=== PATIENT | male | born 1950 | race African-American/Black ===

== ENCOUNTER 2016-08-19 22:13 | Inpatient (IN) | payer BC ==
[2016-08-19 22:43] LABS: URINE APPEARANCE CLEAR; URINE BILIRUBIN NEGATIVE (NEGATIVE); URINE COLOR YELLOW; URINE GLUCOSE (UA) NEGATIVE (NEGATIVE); URINE KETONE TRACE (NEGATIVE); URINE NITRITE NEGATIVE (NEGATIVE); URINE PROTEIN NEGATIVE (NEGATIVE); URINE UROBILINOGEN 2.0 E.U/dl E.U./dl (0.2-1.0)
--- NOTE | 2016-08-19 22:48 | PDOC ---
History of Present Illness - History of Present Illness Initial Comments: 08/19/16 23:34 Patient is a 65 year old male with significant medical hx of HTN who is presenting to the ED with fever 24 hours after undergoing a prostate biopsy. Yesterday the patient had a prostate biopsy and today developed fever and chills. Family member states the patients fever has gone as high as 103.2. Four days ago the patient was started on bactrim and flagyl preoperatively. The patient has also been taking 25 mg of Benadryl for suspected sulfa allergy and 400 mg of motrin x 2. The patient denies any back pain, abdominal pain, nausea, vomiting, diarrhea or dysuria. PMD: Emilia Porras Urologist: Edwin Leblanc MD Social Hx: Denies alcohol, tobacco, or drug use. <Geena Catalan - Last Filed: 08/20/16 00:12> <Isatu Moya - Last Filed: 08/20/16 02:56> - General Chief Complaint: SIRS, Suspected/Possible Stated Complaint: ALLERGIC REACTION Time Seen by Provider: 08/19/16 22:22 Past History <Geena Catalan - Last Filed: 08/20/16 00:12> - Past Medical History HTN: Yes - Psycho/Social/Smoking Cessation Hx Suicidal Ideation: No Smoking History: Never smoked <Isatu Moya - Last Filed: 08/20/16 02:56> - Past Medical History Allergies/Adverse Reactions: Allergies Allergy/AdvReac Type Severity Reaction Status Date / Time Sulfa (Sulfonamide Allergy Verified 08/20/16 00:34 Antibiotics) Home Medications: Ambulatory Orders Amlodipine Besylate 5 mg PO DAILY 08/19/16 Metronidazole 250 mg PO DAILY 08/19/16 Sulfamethoxazole/Trimethoprim [Sulfamethoxazole-Tmp Ss Tablet] 1 each PO BID 12/28 Review of Systems - Review of Systems Comments:: 08/19/16 23:35 CONSTITUTIONAL: Present: fever, chills Absent: diaphoresis, generalized weakness, malaise, loss of appetite HEENT: Absent: rhinorrhea, nasal congestion, throat pain, throat swelling, difficulty swallowing, mouth swelling, ear pain, eye pain, visual changes CARDIOVASCULAR: Absent: chest pain, syncope, palpitations, irregular heart rate, lightheadedness , peripheral edema RESPIRATORY: Absent: cough, shortness of breath, dyspnea with exertion, orthopnea, wheezing, stridor, hemoptysis GASTROINTESTINAL: Absent: abdominal pain, abdominal distension, nausea, vomiting, diarrhea, constipation, melena, hematochezia GENITOURINARY: Absent: dysuria, frequency, urgency, hesitancy, hematuria, flank pain, genital pain MUSCULOSKELETAL: Absent: myalgia, arthralgia, joint swelling SKIN: Absent: rash, itching, pallor HEMATOLOGIC/IMMUNOLOGIC: Absent: easy bleeding, easy bruising, lymphadenopathy, frequent infections ENDOCRINE: Absent: unexplained weight gain, unexplained weight loss, heat intolerance, cold intolerance NEUROLOGIC: Absent: headache, focal weakness or paresthesia, dizziness, unsteady gait, seizure, mental status changes, bladder or bowel incontinence. PSYCHIATRIC: Absent: anxiety, depression, suicidal or homicidal ideation, hallucinations <Geena Catalan - Last Filed: 08/20/16 00:12> *Physical Exam - Vital Signs Last Vital Signs Temp Pulse Resp BP Pulse Ox 100.9 F H 127 H 20 128/71 96 08/19/16 22:18 08/19/16 22:18 08/19/16 22:18 08/19/16 22:18 08/19/16 22:18 - Physical Exam Comments: 08/19/16 23:35 GENERAL: Warm to touch. Febrile. Well developed, well nourished. Awake and alert. No acute distress. HEENT: Normocephalic, atraumatic. PERRLA, EOMI. No conjunctival pallor. Sclera are non- icteric. Dry mucous membranes. Oropharynx is clear. NECK: Supple. Full ROM. No JVD. Carotid pulses 2+ and symmetric, without bruits. No thyromegaly. No lymphadenopathy. CARDIOVASCULAR: Tachycardic. No murmurs, rubs, or gallops. Distal pulses are 2+ and symmetric. PULMONARY: No evidence of respiratory distress. Lungs clear to auscultation bilaterally. No wheezing, rales or rhonchi. ABDOMINAL: Soft. Non-tender. Non-distended. No rebound or guarding. No organomegaly. Normoactive bowel sounds. MUSCULOSKELETAL: Normal range of motion at all joints. No bony deformities or tenderness. No CVA tenderness. EXTREMITIES: No cyanosis. No clubbing. No edema. No calf tenderness. SKIN: Warm and dry. Normal capillary refill. No rashes. No jaundice. NEUROLOGICAL: Alert, awake, appropriate. No focal neurological deficits. Cranial nerves 2-12 intact. Normal speech. Gait is normal without ataxia. PSYCHIATRIC: Cooperative. Good eye contact. Appropriate mood and affect. <Geena Catalan - Last Filed: 08/20/16 00:12> - Vital Signs Last Vital Signs Temp Pulse Resp BP Pulse Ox 100.9 F H 127 H 20 128/71 96 08/19/16 22:18 08/19/16 22:18 08/19/16 22:18 08/19/16 22:18 08/19/16 22:18 <Isatu Moya - Last Filed: 08/20/16 02:56> ED Treatment Course - LABORATORY CBC & Chemistry Diagram: 08/19/16 23:00 08/19/16 23:00 - ADDITIONAL ORDERS Additional order review: Laboratory Results 08/19/16 08/19/16 23:00 22:35 Lactic Acid 0.893 Urine Color Yellow Urine Appearance Clear Urine pH 5.0 Urine Protein Negative Urine Glucose (UA) Negative Urine Ketones Trace H Urine Blood 2+ H Urine Nitrite Negative Urine Bilirubin Negative Urine Urobilinogen 2.0 e.u/dl Ur Leukocyte Esterase Trace H Urine RBC 100 Urine WBC 10 Ur Epithelial Cells Rare Hyaline Casts 1 Urine Mucus Rare - RADIOLOGY Radiograph Interpretation: 08/19/16 23:50 Chest X-Ray Impression: No significant interval change or acute lung disease is present. Reported By: Carla Flowers MD <Geena Catalan - Last Filed: 08/20/16 00:12> - LABORATORY CBC & Chemistry Diagram: 08/19/16 23:00 08/19/16 23:00 <Isatu Moya - Last Filed: 08/20/16 02:56> Medical Decision Making - Medical Decision Making 08/20/16 02:50 65-year-old man who had a prostate biopsy on Thursday. He has been on Bactrim and Flagyl since Thursday, but still developed 103.2, fever this evening. He took Motrin and then arrival his temperature was 100.[address] Mariza Garcia. he was covering for Dr. leblanc and because this patient has failed by mouth antibiotics. He wants the patient admitted and requested that Dr. Kelly the infectious disease consult <Isatu Moya - Last Filed: 08/20/16 02:56> *DC/Admit/Observation/Transfer - Attestations Scribe Attestion: 08/19/16 23:36 Documentation prepared by Geena Catalan, acting as medical staff coordinator for Isatu Moya MD. <Geena Catalan - Last Filed: 08/20/16 00:12> - Discharge Dispostion Admit: Yes <Isatu Moya - Last Filed: 08/20/16 02:56> Diagnosis at time of Disposition: H/O prostate biopsy Fever Qualifiers: Fever type: due to other condition Qualified Code(s): R50.81 - Fever presenting with conditions classified elsewhere Sepsis Qualifiers: Sepsis type: sepsis due to unspecified organism Qualified Code(s): A41.9 - Sepsis, unspecified organism
[2016-08-19 22:55] LABS: URINE BLOOD 2+ (NEGATIVE); URINE LEUK ESTERASE TRACE (NEGATIVE)
[2016-08-19 23:14] LABS: URINE HYALINE CAST 1 /lpf; URINE MUCUS RARE; URINE RBC 100 /hpf (0-3); URINE WBC 10 /hpf (3-5)
[2016-08-19 23:41] LABS: BASOPHIL 0.3 % (0-2.0); MCH 26.6 pg (25.7-33.7); MCHC 32.6 g/dl (32.0-35.9); MEAN CELL VOLUME 81.5 fl (80-96); NEUTROPHILS 86.1 % (42.8-82.8); PLATELET COUNT 196 K/MM3 (134-434); RDW 13.9 % (11.9-15.9); WHITE BLOOD COUNT 9.2 K/mm3 (4.0-10.0)
[2016-08-19 23:57] LABS: VENOUS BLOOD GAS HCO3 21.7 meq/L (19-25); VENOUS PH 7.5 (7.32-7.42)
[2016-08-20] LABS: INR 1.58 (0.82-1.09); PROTHROMBIN TIME (PATIENT) 17.5 SEC (9.98-11.88)
[2016-08-20 00:03] LABS: ACTIVATED PTT 32.6 SECONDS (26.9-34.4)
[2016-08-20 00:05] LABS: ALBUMIN 3.8 g/dl (3.4-5.0); BILIRUBIN,TOTAL 0.8 mg/dL (0.2-1.0); CALCIUM 8.5 mg/dL (8.5-10.1); COCKROFT - GAULT 61.67; CREATININE 1.4 mg/dL (0.7-1.3); TOT PROT 6.3 g/dl (6.4-8.2)
[2016-08-20] MEDS ORDERED: PIPERACILLIN/TAZOB 4.5 GM 100 ML IVPB ONE (00:44)
[2016-08-20] MEDS ORDERED: VANCOMYCIN 1 GRAM (PRE-DOCKED) 250 ML IVPB ONE (00:44)
[2016-08-20] MEDS ORDERED: VANCOMYCIN 1,000 MG in DEXTROSE 5%-WATER - 250 ML IVPB ONE (00:57)
[2016-08-20] MEDS ORDERED: PIPERACILLIN/TAZOB 3.375 GM 3.375 GM in DEXTROSE 5%-WATER - 50 ML IVPB ONE (00:57)
[2016-08-20] MEDS ORDERED: ACETAMINOPHEN 325 MG TABLET (FP) PO PRN (02:08)
[2016-08-20 03:29] VITALS: BMI 25.8
--- NOTE | 2016-08-20 08:56 | HP ---
DATE OF ADMISSION: 08/20/2016 HISTORY OF PRESENT ILLNESS: This is a 65-year-old male known to me for many years who is on amlodipine for hypertension other than . Last Thursday, he had a surgery for his enlarged prostate. Postoperatively, he was treated with p.o. antibiotics, started spiking fever over the weekend. Yesterday, fever was 101 to 103, so, he came to the emergency room. In the ER, his fever was 101, urine with few RBCs, chest x-ray negative. So, he got admitted with diagnosis of fever, possible UTI. This morning, he is feeling better. SOCIAL HISTORY: He is employed. He is . He is not a smoker. ALLERGIES: No known allergies. PHYSICAL EXAMINATION: Vital signs: BP is 100/75, maximum temperature 100.9, this morning temperature is 97. HEENT: Unremarkable. Neck: Supple. No JVD. Lungs: Clear. Heart: S1, S2 normal. No S3, S4. Abdomen: Soft. Extremities: Legs with no edema. Neurologic: Grossly normal. LABORATORY REPORTS: WBC 9, neutrophils 86, hemoglobin 12. Chemistry: Sodium 138, potassium 4.1, BUN 15, creatinine 1.4, glucose 145, lactic acid 0.8. Urine with ketones plus WBC 10, RBC 100. Chest x-ray is negative. IMPRESSION: Fever, status post prostatectomy, transurethral resection of the prostate, hypertension. PLAN: IV consult, Deana to follow the patient. I will follow this patient. Dung [id number]
--- NOTE | 2016-08-20 11:23 | CONSULT ---
Consult Consult Specialty:: infectious diseases Referred by:: Reason for Consultation:: fever - History of Present Illness Chief Complaint: fever weakness History of Present Illness: 65 year old male with significant medical hx of HTN admitted with fever 24 hours after undergoing a prostate biopsy. according to the patient he does not have any other medical problems patient had prostate biopsy and then started spiking fevers patient fevers were as high as 103.2 currently patient feels better no complaining of any other issues patient was given bactrim and flagyl preop - History Source History Provided By: Patient Limitations to Obtaining History: No Limitations - Alcohol/Substance Use Hx Alcohol Use: No - Smoking History Smoking history: Never smoked Home Medications - Allergies Allergies/Adverse Reactions: Allergies Allergy/AdvReac Type Severity Reaction Status Date / Time Sulfa (Sulfonamide Allergy Verified 08/20/16 00:34 Antibiotics) - Home Medications Home Medications: Ambulatory Orders Amlodipine Besylate 5 mg PO DAILY 08/19/16 Metronidazole 250 mg PO DAILY 08/19/16 Sulfamethoxazole/Trimethoprim [Sulfamethoxazole-Tmp Ss Tablet] 1 each PO BID 12/28 Review of Systems - Review of Systems Constitutional: reports: Fever Eyes: reports: No Symptoms HENT: reports: No Symptoms Neck: reports: No Symptoms Cardiovascular: reports: No Symptoms Respiratory: reports: No Symptoms Gastrointestinal: reports: No Symptoms Genitourinary: reports: No Symptoms Breasts: reports: No Symptoms Reported Musculoskeletal: reports: No Symptoms Integumentary: reports: No Symptoms Neurological: reports: No Symptoms Endocrine: reports: No Symptoms Hematology/Lymphatic: reports: No Symptoms Psychiatric: reports: No Symptoms Physical Exam Vital Signs: Vital Signs Temperature 98.2 F 08/20/16 08:28 Pulse Rate 77 08/20/16 08:28 Respiratory Rate 18 08/20/16 08:28 Blood Pressure 122/75 08/20/16 08:28 O2 Sat by Pulse Oximetry (%) 96 08/20/16 01:14 Constitutional: Yes: No Distress, Calm Eyes: Yes: Conjunctiva Clear HENT: Yes: Atraumatic Neck: Yes: Supple, Trachea Midline Cardiovascular: Yes: Regular Rate and Rhythm Respiratory: Yes: Regular, CTA Bilaterally Gastrointestinal: Yes: Normal Bowel Sounds, Soft Musculoskeletal: Yes: WNL Extremities: Yes: WNL Neurological: Yes: Alert, Oriented Psychiatric: Yes: Alert, Oriented Imaging - Results Chest X-ray: Report Reviewed, Image Reviewed Assessment/Plan this patient with recent prostate biopsy now coming in with fevers prostatitis r/o uti fever weakness plan will start on abx await for all cx reports will do u/s of the prostate to see for collections monitor for fevers
--- NOTE | 2016-08-20 13:23 | EKG ---
Test Reason : Blood Pressure : / mmHG Vent. Rate : 074 BPM Atrial Rate : 074 BPM P-R Int : 150 ms QRS Dur : 078 ms QT Int : 380 ms P-R-T Axes : 018 026 012 degrees QTc Int : 421 ms NORMAL SINUS RHYTHM NORMAL ECG WHEN COMPARED WITH ECG OF 11-OCT-2008 09:40, NO SIGNIFICANT CHANGE WAS FOUND Confirmed by TAMI HERNADEZ MD ([id number]) on 08/20/2016 1:23:18 PM Referred By: Confirmed By:TAMI HERNADEZ MD
[2016-08-20] MEDS: MEROPENEM 1 GM in DEXTROSE 5%-WATER - 250 ML IVPB SCH ×2 (13:47→18:13)
[2016-08-20] MEDS ORDERED: PT OWN MED DRAWER 7, Y5N ONE (18:12)
[2016-08-21] MEDS: MEROPENEM 1 GM in DEXTROSE 5%-WATER - 250 ML IVPB SCH ×3 (02:04→17:27)
--- NOTE | 2016-08-21 08:22 | PN ---
Progress Note, Physician Chief Complaint: Feels better History of Present Illness: mag Baker ID consult appreciated - Current Medication List Current Medications: Active Medications Acetaminophen (Tylenol -) 650 mg PO Q6H PRN PRN Reason: FEVER OR PAIN Last Admin: 08/20/16 17:05 Dose: 650 mg Meropenem 1 gm/ Dextrose 250 mls @ 250 mls/hr IVPB Q8H-IV BRAXTON PRN Reason: Protocol Last Admin: 08/21/16 02:04 Dose: 250 mls/hr - Objective Vital Signs: Vital Signs Temperature 99.6 F 08/21/16 06:31 Pulse Rate 75 08/21/16 06:31 Respiratory Rate 20 08/21/16 06:31 Blood Pressure 114/78 08/21/16 06:31 O2 Sat by Pulse Oximetry (%) 97 08/20/16 21:00 Constitutional: Yes: Well Nourished Eyes: Yes: WNL HENT: Yes: WNL Neck: Yes: WNL Cardiovascular: Yes: WNL Respiratory: Yes: WNL Gastrointestinal: Yes: WNL ...Rectal Exam: Yes: WNL Genitourinary: Yes: WNL Musculoskeletal: Yes: WNL Edema: No Edema: LUE: Trace, RUE: Trace, LLE: Trace, RLE: Trace Labs: INR, PTT INR 1.58 (0.82-1.09) H 08/19/16 23:22 - ....Imaging Ultrasound: Report Reviewed Assessment/Plan Continue imepenem
[2016-08-21] MEDS ORDERED: PT OWN MED DRAWER 7, Y5N ONE (09:31)
--- NOTE | 2016-08-21 16:47 | PN ---
Progress Note, Physician History of Present Illness: patient has remained stable no new issues fells well - Current Medication List Current Medications: Active Medications Acetaminophen (Tylenol -) 650 mg PO Q6H PRN PRN Reason: FEVER OR PAIN Last Admin: 08/20/16 17:05 Dose: 650 mg Meropenem 1 gm/ Dextrose 250 mls @ 250 mls/hr IVPB Q8H-IV BRAXTON PRN Reason: Protocol Last Admin: 08/21/16 09:33 Dose: 250 mls/hr - Objective Vital Signs: Vital Signs Temperature 98.6 F 08/21/16 14:25 Pulse Rate 98 H 08/21/16 14:25 Respiratory Rate 16 08/21/16 14:25 Blood Pressure 120/72 08/21/16 14:25 O2 Sat by Pulse Oximetry (%) 97 08/21/16 09:00 Constitutional: Yes: No Distress, Calm Cardiovascular: Yes: Regular Rate and Rhythm Respiratory: Yes: Regular, CTA Bilaterally Gastrointestinal: Yes: Normal Bowel Sounds, Soft Musculoskeletal: Yes: WNL Extremities: Yes: WNL Neurological: Yes: Alert, Oriented Psychiatric: Yes: Alert, Oriented Labs: INR, PTT INR 1.58 (0.82-1.09) H 08/19/16 23:22 Assessment/Plan this patient with recent prostate biopsy now coming in with fevers prostatitis fever weakness plan continue abx watch for fevers if no fevers for 24 hours will switch to cipro
--- NOTE | 2016-08-22 00:42 | CONS ---
DATE OF CONSULTATION: DATE OF DICTATION: 08/21/2016 Patient is a 65-year-old male with history of prostatism and abnormal digital rectal exam, and an elevated PSA. He underwent a transrectal ultrasound as well as an ultrasound guided biopsy on August 18. The patient was on preoperative Bactrim as well as Flagyl. Prior to the ultrasound and a transrectal biopsy, patient received 1 g of Ancef and 160 mg of gentamicin. He had a benign and uneventful transrectal ultrasound and an ultrasound guided biopsy. He was to continue on his Flagyl and Bactrim. 24 hours postoperative the patient developed fever as well as chills. Patient's temperature went as high as 103.2. He denies any voiding symptoms. He denies any hematuria. He denies any past surgical history. After taking the Bactrim, the patient developed a skin rash which was pruritic and therefore the Bactrim was discontinued and the patient was placed on Benadryl and levofloxacin. The patient does have history of high blood pressure for which he takes Norvasc 5 mg daily. Presently he denies any GI or symptoms. He denies any fever or chills or muscle aches. In the emergency room his temperature was 98.2, pulse was 77, respirations 18, and O2 saturation of 96. PHYSICAL EXAMINATION: Well developed adult male in no apparent distress. Abdomen: Soft. There is no CVA tenderness. Genitalia: Atraumatic. His prostate was 2+, firm, nontender and non boggy. LABORATORY DATA: On admission revealed a white count of 9.2, hemoglobin and hematocrit was 12/36.8, platelets were 196. His INR was 1.5. Patient's BUN and creatinine were 16/1.5 respectively. Random glucose was 145. A urine revealed 2+ blood, negative nitrates. Blood cultures as well as urine cultures revealed no growth after 24 hours. Presently the patient's T-max is 99.3. Infectious disease has placed patient on imipenem and vancomycin. Pathology report as of August 21 is still pending. It appears that the patient developed post biopsy sepsis. Will follow patient as outpatient and have result of biopsy by Thursday the 25 of February. Dung [id number]
[2016-08-22] MEDS: MEROPENEM 1 GM in DEXTROSE 5%-WATER - 250 ML IVPB SCH ×3 (02:11→18:34)
--- NOTE | 2016-08-22 08:48 | PN ---
Progress Note, Physician Chief Complaint: Feels better History of Present Illness: Case discussed with Dr Dempsey ,advised 1 more day IV antibiotics - Current Medication List Current Medications: Active Medications Acetaminophen (Tylenol -) 650 mg PO Q6H PRN PRN Reason: FEVER OR PAIN Last Admin: 08/20/16 17:05 Dose: 650 mg Meropenem 1 gm/ Dextrose 250 mls @ 250 mls/hr IVPB Q8H-IV BRAXTON PRN Reason: Protocol Last Admin: 08/22/16 02:11 Dose: 250 mls/hr - Objective Vital Signs: Vital Signs Temperature 97.9 F 08/22/16 06:00 Pulse Rate 75 08/22/16 06:00 Respiratory Rate 18 08/22/16 06:00 Blood Pressure 123/79 08/22/16 06:00 O2 Sat by Pulse Oximetry (%) 97 08/21/16 21:00 Constitutional: Yes: No Distress Eyes: Yes: WNL HENT: Yes: WNL Neck: Yes: WNL Cardiovascular: Yes: WNL Respiratory: Yes: WNL Gastrointestinal: Yes: WNL ...Rectal Exam: Yes: Deferred Genitourinary: Yes: WNL Extremities: Yes: WNL Edema: No Neurological: Yes: Alert Labs: INR, PTT INR 1.58 (0.82-1.09) H 08/19/16 23:22 Assessment/Plan Continue IV antibiotics
--- NOTE | 2016-08-22 09:21 | PN ---
Progress Note, Physician History of Present Illness: stable no fevers patient has been afebrile now for 24 hours now no other issues - Current Medication List Current Medications: Active Medications Acetaminophen (Tylenol -) 650 mg PO Q6H PRN PRN Reason: FEVER OR PAIN Last Admin: 08/20/16 17:05 Dose: 650 mg Meropenem 1 gm/ Dextrose 250 mls @ 250 mls/hr IVPB Q8H-IV BRAXTON PRN Reason: Protocol Last Admin: 08/22/16 02:11 Dose: 250 mls/hr - Objective Vital Signs: Vital Signs Temperature 97.9 F 08/22/16 06:00 Pulse Rate 75 08/22/16 06:00 Respiratory Rate 18 08/22/16 06:00 Blood Pressure 123/79 08/22/16 06:00 O2 Sat by Pulse Oximetry (%) 97 08/21/16 21:00 Constitutional: Yes: No Distress, Calm Cardiovascular: Yes: Regular Rate and Rhythm Respiratory: Yes: Regular, CTA Bilaterally Gastrointestinal: Yes: Normal Bowel Sounds, Soft Musculoskeletal: Yes: WNL Extremities: Yes: WNL Neurological: Yes: Alert, Oriented Psychiatric: Yes: Alert, Oriented Labs: INR, PTT INR 1.58 (0.82-1.09) H 08/19/16 23:22 Assessment/Plan this patient with recent prostate biopsy now coming in with fevers prostatitis fever weakness plan continue abx stable can switch to oral abx tomorrow to cipro 500 mg twice a day for another 10 days
--- NOTE | 2016-08-22 10:27 | PN ---
Progres Note Chief Complaint: stable afebrile. continue current antibiotics no current gu intervention. pathology pending - Objective Vital Signs: Vital Signs Temperature 97.9 F 08/22/16 06:00 Pulse Rate 75 08/22/16 06:00 Respiratory Rate 18 08/22/16 06:00 Blood Pressure 123/79 08/22/16 06:00 O2 Sat by Pulse Oximetry (%) 97 08/21/16 21:00 Labs/Additional Data: INR, PTT INR 1.58 (0.82-1.09) H 08/19/16 23:22
[2016-08-23] MEDS ORDERED: PT OWN MED DRAWER 7, Y5N ONE (00:49)
[2016-08-23] MEDS: MEROPENEM 1 GM in DEXTROSE 5%-WATER - 250 ML IVPB SCH (01:24)
[2016-08-23 07:07] VITALS: BP 122/82; PULSE 82; TEMP 98.7
--- NOTE | 2016-08-23 08:22 | DS ---
Physical Examination Vital Signs: Vital Signs Temperature 98.7 F 08/23/16 07:06 Pulse Rate 82 08/23/16 07:06 Respiratory Rate 20 08/23/16 07:06 Blood Pressure 122/82 08/23/16 07:06 O2 Sat by Pulse Oximetry (%) 97 08/22/16 21:00 Findings/Remarks: Admitted with high fever after prostate biopsy Treated with imepenum afibrile for 48 hours DC on PO cepro for 3 weeks Constitutional: Yes: No Distress Eyes: Yes: WNL HENT: Yes: WNL Neck: Yes: WNL Cardiovascular: Yes: WNL Respiratory: Yes: WNL Gastrointestinal: Yes: Normal Bowel Sounds ...Rectal Exam: Yes: Deferred Breast(s): Yes: WNL Musculoskeletal: Yes: Muscle Weakness Edema: No Peripheral Pulses WNL: Yes Integumentary: Yes: WNL Neurological: Yes: Alert Psychiatric: Yes: WNL Discharge Summary Reason For Visit: FEVER H/O PROSTATE BIOPSY Current Active Problems Fever (Acute) H/O prostate biopsy (Acute) Sepsis (Acute) - Home Medications Comprehensive Discharge Medication List: Ambulatory Orders Amlodipine Besylate 5 mg PO DAILY 08/19/16 Metronidazole 250 mg PO DAILY 08/19/16 Sulfamethoxazole/Trimethoprim [Sulfamethoxazole-Tmp Ss Tablet] 1 each PO BID 12/28
== END 2016-08-23 10:37 | disposition home or self-care (01) | DRG 864 ==
LOC: JER 22:13 → JERBED 08-20 00:16 → J8W 08-20 01:56
PROVIDERS: ADMIT Internal Medicine; ATTEND Internal Medicine
DX: R50.82 Postprocedural fever (principal); N41.8 Other inflammatory diseases of prostate; I10 Essential (primary) hypertension
CPT/HCPCS: 36415; 71010-TC; 76873-TC; 80053; 81003; 81015; 82803; 83605; 85025; 85610; 85730; 87040; 87086; 93005; 93010; 99283-25